=== PATIENT | female | born 1985 ===

== ENCOUNTER 2024-05-16 08:50 | Outpatient (REF) | payer OTHER, SELFPAY ==
[2024-05-16 14:41] LABS: HGB 12.2 g/dL (11.2-15.7); MCH 26.1 pg (27.0-33.0); MCHC 31.3 % (32.0-36.0); MCV 84 fL (80-95); MPV 8.9 fL (8.0-11.0); Platelet Count 369 10^3/uL (130-400); RBC 4.67 10^6/uL (3.93-5.22); RDW 16.2 % (11.7-14.6); RDW-SD 49.5 fL
[2024-05-16 15:10] LABS: ALT 43 U/L (14-59); AST 31 U/L (15-37); Albumin 3.5 g/dL (3.4-5.0); Alkaline Phosphatase 92 U/L (46-116); Anion Gap 7.5 mmol/L (3-11); BUN 10 mg/dL (7-18); Bilirubin, Total 0.42 mg/dL (0.2-1.0); CO2 27.5 mmol/L (21.0-32.0); CREATININE 0.9 mg/dL (0.55-1.02); Calcium 8.8 mg/dL (8.5-10.1); Calculated LDL 133 mg/dL (<100); Chloride 104 mmol/L (98-107); Cholesterol 209 mg/dL (<200); Glucose 113 mg/dL (74-106); HDL Cholesterol 51 mg/dL (40-60); Potassium 4.1 mmol/L (3.5-5.1); Sodium 139 mmol/L (136-145); TSH (W/Ref FT4) 3.41 uIU/mL (0.36-3.74); Total Protein 7.5 g/dL (6.4-8.2); Triglyceride 127 mg/dL (<150); Vitamin D 25 Total 28.7 ng/mL (30-100)
== END 2024-05-16 08:51 | disposition home or self-care (01) ==
LOC: NCHCN 08:50
PROVIDERS: Visit Provider Family Medicine
DX: D64.9 Anemia, unspecified (principal); I10 Essential (primary) hypertension; E78.5 Hyperlipidemia, unspecified; E55.9 Vitamin D deficiency, unspecified; R63.5 Abnormal weight gain
CPT/HCPCS: 80053; 80061; 82306; 85027; 84443